=== PATIENT | female | born 1935 | race Hispanic/Latino ===

== ENCOUNTER 2019-12-07 12:00 | Inpatient (IN) | payer MEDICARE ==
[~2019-12-07] VITALS: Ht 147.3 cm; Wt 40.4 kg
[~2019-12-07 12:00] MED LIST: ACET-2743 PO; ALEN70TA10 PO; AMLO2.5T4 PO; BENZ200C53 PO; CALC1TAB2 PO; DIPH25 PO; LEVO5TAB13 PO; PANT40TA54 PO; [UNRECOGNIZED DRUG - CODE] PO
[2019-12-07 12:52] LABS: BASOPHILS % (AUTO) 0.1 % (0.0-5.0); HEMATOCRIT 39.3 % (36-48); LYMPHOCYTES % (AUTO) 9.6 % (21.0-51.0); MEAN CORPUSCULAR HGB CONC 35.1 g/dL (32.0-36.0); MEAN CORPUSCULAR VOLUME 76.9 fL (79-99); MONOCYTES % (AUTO) 8.4 % (3.0-13.0); NEUTROPHILS % (AUTO) 81.7 % (40.0-77.0); PLATELET COUNT (AUTO) 382 K/uL (130-400); RED BLOOD CELL COUNT(AUTO) 5.11 MIL/uL (4.00-5.50); RED CELL DISTRIBUTION WIDTH 11.2 % (11.0-15.5); WHITE BLOOD COUNT (AUTO) 8.3 K/uL (4.8-10.8)
[2019-12-07 12:56] LABS: APPEARANCE,URINE Turbid (CLEAR); BILIRUBIN,URINE Negative (NEGATIVE); COLOR,URINE Dark Yellow (YELLOW); GLUCOSE, URINE (UA) Negative (NEGATIVE); KETONES,URINE Trace mg/dL (NEGATIVE); LEUKOCYTE ESTERASE ,URINE Trace (NEGATIVE); NITRATE,URINE Negative (NEGATIVE); OCCULT BLOOD,URINE Negative (NEGATIVE); PROTEIN,URINE 300 mg/dL (NEGATIVE)
[2019-12-07] MEDS ORDERED: ZOSYN 3.375GM+NS 50ML 50 ML IV ONE (12:58)
[2019-12-07] MEDS ORDERED: METHYLPREDNISOLONE SOD SUCC 40MG/ML 1ML ONE (12:58)
[2019-12-07 13:06] LABS: AMORPHOUS SEDIMENT,UR Many /LPF (None Seen); BACTERIA,URINE Few /HPF (None Seen); RBC,URINE None Seen /HPF (0-1); SQUAMOUS EPITHELIAL CELL,UR 0-2 /HPF (0-2); WBC,URINE 0-1 /HPF (0-1)
[2019-12-07 13:07] LABS: ALBUMIN 3.2 g/dL (3.5-5.0); BILIRUBIN,DIRECT 0.2 mg/dL (0.0-0.3); BILIRUBIN,TOTAL 0.6 mg/dL (0.2-1.0); CREATININE 0.6 mg/dL (0.5-1.5); POTASSIUM 3.3 mmol/L (3.5-5.1)
[2019-12-07 13:43] LABS: CREATINE KINASE, TOTAL 90 U/L (21-232); MYOGLOBIN 74 ng/mL (10-92); TROPONIN I < 0.04 ng/mL (0.00-0.06)
[2019-12-07 13:46] LABS: INR 1.03 (0.85-1.15); PROTHROMBIN TIME 11.1 SEC (9.6-11.6)
[2019-12-07 13:55] LABS: ABG BASE EXCESS 5.7 mmol/L (-2.0-3.0); ABG OXYGEN SATURATION 99.3 % (95.0-99.0); ABG PCO2 59 mmHg (32-45)
[2019-12-07] MEDS ORDERED: SODIUM CHLORIDE 0.9% 1000ML 1,000 ML IV ONE (15:08)
[2019-12-07] MEDS ORDERED: LEVOFLOXACIN 500 MG/D5W 100 ML 100 ML ONE (15:39)
[2019-12-07] MEDS ORDERED: FAMOTIDINE/PF 20 MG/2 ML VIAL IV ONE (21:02)
[2019-12-07 21:14] LABS: CREATININE 0.4 mg/dL (0.5-1.5); POTASSIUM 3.4 mmol/L (3.5-5.1)
[2019-12-07] MEDS ORDERED: POTASSIUM BICARB/CIT AC 25 MEQ TABLET.EFF ONE (23:31)
[2019-12-08] MEDS ORDERED: ACETAMINOPHEN ELIXIR 650 MG/20.3 ML UDCUP ONE (06:04)
[2019-12-08 06:26] LABS: HEMATOCRIT 37.2 % (36-48); LYMPHOCYTES % (AUTO) 13.6 % (21.0-51.0); MEAN CORPUSCULAR HEMOGLOBIN 26.7 pg (27.0-33.0); MEAN CORPUSCULAR HGB CONC 33.9 g/dL (32.0-36.0); MEAN CORPUSCULAR VOLUME 78.8 fL (79-99); MONOCYTES % (AUTO) 6.4 % (3.0-13.0); NEUTROPHILS % (AUTO) 79.7 % (40.0-77.0); PLATELET COUNT (AUTO) 357 K/uL (130-400); RED BLOOD CELL COUNT(AUTO) 4.72 MIL/uL (4.00-5.50); RED CELL DISTRIBUTION WIDTH 11.3 % (11.0-15.5)
[2019-12-08 06:40] LABS: ALBUMIN 2.8 g/dL (3.5-5.0); BILIRUBIN,TOTAL 0.5 mg/dL (0.2-1.0); CREATININE 0.6 mg/dL (0.5-1.5); POTASSIUM 3.8 mmol/L (3.5-5.1)
[2019-12-08] MEDS ORDERED: METOPROLOL TARTRATE 25 MG TAB ONE (08:31)
[2019-12-08] MEDS ORDERED: FAMOTIDINE/PF 20 MG/2 ML VIAL IV ONE (08:32)
[2019-12-08 13:28] LABS: CREATININE 0.3 mg/dL (0.5-1.5); POTASSIUM 3.2 mmol/L (3.5-5.1)
[2019-12-08] MEDS ORDERED: LEVOFLOXACIN 500 MG/D5W 100 ML 100 ML ONE (16:58)
[2019-12-08] MEDS ORDERED: POTASSIUM CHLORIDE 10% ELIXIR 20 MEQ/15 ML UDCUP ONE ×2 (16:58→22:36)
[2019-12-08] MEDS ORDERED: AMLODIPINE BESYLATE 5 MG TAB ONE (17:24)
--- NOTE | 2019-12-08 20:10 | NUR ---
Pt ARRIVED TO ROOM 410 VIA STRETCHER. AWAKE AND ALERT. DAUGHTER AT HER SIDE. 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 STACY WAS INSERTED IN ER ON 12/08/2019. IV ON RFA 20G, NS AT 100ML/HR. RAMON STATES AT HOME HER MOM IS INDEPENDENT BUT LATELY BEING ILL SHE NEEDS HELP. CALL LIGHT WITHIN REACH. BED TO LOWEST LEVEL, LOCKED, SIDE RAILS UP x2. PENDING PCR RESULTS.
[2019-12-08 20:36] VITALS: BP 140/58
[2019-12-08] MEDS ORDERED: DIPH25 PO (21:33)
[2019-12-08] MEDS ORDERED: LEVO5TAB29 PO (21:37)
[2019-12-08] MEDS ORDERED: DORZ10DR10 OP (21:38)
[2019-12-08] MEDS: POTASSIUM CHLORIDE 10% ELIXIR 20 MEQ/15 ML UDCUP PO SCH (22:15)
[2019-12-08] MEDS: SODIUM CHLORIDE 0.9% 1000ML 1,000 ML IV SCH (22:45)
[2019-12-08 23:45] VITALS: BP 138/66
[2019-12-09] MEDS: POTASSIUM CHLORIDE 10% ELIXIR 20 MEQ/15 ML UDCUP PO SCH (02:28)
[2019-12-09 04:10] VITALS: BP 132/62
[2019-12-09] MEDS: SODIUM CHLORIDE 0.9% 1000ML 1,000 ML IV SCH (06:18)
[2019-12-09 08:25] VITALS: BP 169/72
[2019-12-09 12:25] VITALS: BP 119/58
[2019-12-09] MEDS ORDERED: AMLODIPINE BESYLATE 5 MG TAB ONE (15:34)
[2019-12-09 15:39] VITALS: BP 149/69
[2019-12-09] MEDS: LEVOFLOXACIN 500 MG/D5W 100 ML 100 ML IV SCH (15:48)
[2019-12-09 16:07] LABS: CREATININE 0.4 mg/dL (0.5-1.5); POTASSIUM 3.9 mmol/L (3.5-5.1)
--- NOTE | 2019-12-09 18:54 | NUR ---
#22 guage peripheral placed at left forearm. Iv antibiotics running.
[2019-12-09 19:26] VITALS: BP 142/58
[2019-12-09] MEDS: METOPROLOL TARTRATE 25 MG TAB PO SCH (21:00)
[2019-12-09 23:35] VITALS: BP 135/55
--- NOTE | 2019-12-10 00:13 | NUR ---
Pt's daughter requests metoprolol be held. Pt's daughter states she previously spoke w/Dr. Voss regarding holding metoprolol for concern for lightheadedness and falls. Current HR is 80.
[2019-12-10 03:45] VITALS: BP 160/71
[2019-12-10 08:37] VITALS: BP 155/61
[2019-12-10] MEDS ORDERED: AMLODIPINE BESYLATE 2.5 MG TAB PO SCH (09:00)
[2019-12-10] MEDS: METOPROLOL TARTRATE 25 MG TAB PO SCH (09:00)
[2019-12-10 12:10] VITALS: BP 134/58
[2019-12-10] MEDS: LEVOFLOXACIN 500 MG/D5W 100 ML 100 ML IV SCH (13:31)
[2019-12-10 14:54] LABS: CREATININE 0.5 mg/dL (0.5-1.5); POTASSIUM 4.1 mmol/L (3.5-5.1)
[2019-12-10 16:41] VITALS: BP 134/60
[2019-12-10] MEDS ORDERED: AMLO2.5T2 PO (17:10)
--- NOTE | 2019-12-10 19:02 | NUR ---
SPOKE WITH DAUGHTER PETRONA FOR [place] PLANNING STATES LIVES W/ SPOUSE, HOME SAFE AND ACCESSIBLE, NO PROBLEMS WITH MOBILITY INDP WITH ALL ADLS, DOES NOT DRIVE,HAS NEBULIZER, FOLLOWS REGULARLY WITH HER PCP,FLP HOME, DAUGHTER TO TRANSPORT. AWARE OF COVID NEG STATUS, NO SICK CONTACTS IN THE HOME Addendum: 12/10/19 at 1907 by ELLE PENA RN CM Amended: Links added.
== END 2019-12-10 18:00 | disposition home or self-care (01) | DRG 193 ==
LOC: EDH 12:00 → EDHIP 15:15 → 4BH 12-08 20:15
PROVIDERS: ADMIT Internal Medicine; ATTEND Internal Medicine
DX: J18.9 Pneumonia, unspecified organism (principal); Q33.6 Congenital hypoplasia and dysplasia of lung; Z68.1 Body mass index [BMI] 19.9 or less, adult; E87.1 Hypo-osmolality and hyponatremia; E46 Unspecified protein-calorie malnutrition; G93.40 Encephalopathy, unspecified; F05 Delirium due to known physiological condition; I10 Essential (primary) hypertension; E86.0 Dehydration; R62.7 Adult failure to thrive; K59.00 Constipation, unspecified; E88.89 Other specified metabolic disorders; M81.0 Age-related osteoporosis without current pathological fracture; Z20.828 Contact with and (suspected) exposure to other viral communicable diseases; Z90.49 Acquired absence of other specified parts of digestive tract; Z88.0 Allergy status to penicillin; Z82.49 Family history of ischemic heart disease and other diseases of the circulatory system
CPT/HCPCS: 36415; 36600; 70450; 71045; 80048; 80053; 80076; 81001; 82140; 82550; 82803; 83605; 83874; 84132; 84145; 84484; 85025; 85378; 85610; 85730; 86900; 86901; 87040; 87088; 87426; 87804; 93005; A4344; G0378; J1956; J2543; J2920; J3490; J7030; U0003

== ENCOUNTER 2020-02-26 14:49 | Inpatient (IN) | payer MEDICARE ==
[~2020-02-26] VITALS: Ht 147.3 cm; Wt 72.1 kg
[~2020-02-26 14:49] MED LIST changes: -ACET-2743 PO; -ALEN70TA10 PO; +AMLO2.5T2 PO; -BENZ200C53 PO; -CALC1TAB2 PO; +DORZ10DR10 OP; -LEVO5TAB13 PO; +LEVO5TAB29 PO; -[UNRECOGNIZED DRUG - CODE] PO
[2020-02-26 16:15] LABS: BASOPHILS % (AUTO) 0.1 % (0.0-5.0); HEMATOCRIT 38.6 % (36-48); LYMPHOCYTES % (AUTO) 4.4 % (21.0-51.0); MEAN CORPUSCULAR HEMOGLOBIN 27.1 pg (27.0-33.0); MEAN CORPUSCULAR HGB CONC 30.3 g/dL (32.0-36.0); MEAN CORPUSCULAR VOLUME 89.6 fL (79-99); MONOCYTES % (AUTO) 8.3 % (3.0-13.0); NUCLEATED RED BLOOD CELLS 0.7 % (0.0-0.19); PLATELET COUNT (AUTO) 272 K/uL (130-400); RED BLOOD CELL COUNT(AUTO) 4.31 MIL/uL (4.00-5.50); RED CELL DISTRIBUTION WIDTH 15.1 % (11.0-15.5); WHITE BLOOD COUNT (AUTO) 14.6 K/uL (4.8-10.8)
[2020-02-26] MEDS ORDERED: SODIUM CHLORIDE 0.9% 1000ML 1,000 ML IV ONE (17:02)
[2020-02-26] MEDS ORDERED: ZOSYN 3.375GM+NS 50ML 50 ML IV ONE (17:02)
[2020-02-26 17:06] LABS: ALBUMIN 2.6 g/dL (3.5-5.0); BILIRUBIN,TOTAL 1.1 mg/dL (0.2-1.0); CREATININE 1.2 mg/dL (0.5-1.5); TOTAL PROTEIN, SERUM 7.2 g/dL (6.0-8.3)
[2020-02-26] MEDS ORDERED: CALCIUM GLUCONATE 1 GM/10 ML VIAL IV ONE (17:13)
[2020-02-26] MEDS ORDERED: DEXTROSE 50%-WATER 50 ML DISP.SYRIN IV ONE (17:13)
[2020-02-26] MEDS ORDERED: INSULIN HUMULIN R 100 UNIT/ML 3ML ONE (17:14)
[2020-02-26] MEDS ORDERED: SODIUM CHLORIDE 0.9% 100 ML IV ONE (17:16)
[2020-02-26 17:41] LABS: APPEARANCE,URINE CLEAR (CLEAR); BILIRUBIN,URINE SMALL (NEGATIVE); COLOR,URINE YELLOW (YELLOW); GLUCOSE, URINE (UA) NEGATIVE (NEGATIVE); KETONES,URINE NEGATIVE (NEGATIVE); LEUKOCYTE ESTERASE ,URINE NEGATIVE (NEGATIVE); NITRATE,URINE NEGATIVE (NEGATIVE); OCCULT BLOOD,URINE NEGATIVE (NEGATIVE); PH,URINE 5.5 (5.0-8.0); PROTEIN,URINE 100 mg/dL (NEGATIVE); UROBILINOGEN,URINE 0.2 mg/dL (0.2-1.0)
[2020-02-26] MEDS ORDERED: FUROSEMIDE 10 MG/ML 2ML VIAL ONE (18:11)
[2020-02-26 18:19] LABS: ABG BASE EXCESS -5.9 mmol/L (-2.0-3.0); ABG HCO3 30.7 mmol/L (21.0-28.0); ABG OXYGEN SATURATION 98.1 % (95.0-99.0); ABG PCO2 146 mmHg (32-45)
[2020-02-26 18:29] LABS: RBC,URINE 0-1 /HPF (0-1); WBC,URINE 0-1 /HPF (0-1)
[2020-02-26 18:30] LABS: BACTERIA,URINE Few /HPF (None Seen); SQUAMOUS EPITHELIAL CELL,UR Rare /HPF (0-2); TRANSITIONAL EPI CELLS,URINE Rare /HPF (None Seen)
[2020-02-26] MEDS ORDERED: LEVOFLOXACIN 500 MG/D5W 100 ML 100 ML IV ONE (18:30)
[2020-02-26 20:07] LABS: ABG BASE EXCESS 2.1 mmol/L (-2.0-3.0); ABG HCO3 29.3 mmol/L (21.0-28.0); ABG PCO2 57 mmHg (32-45)
[2020-02-26] MEDS ORDERED: PROPOFOL 1000 MG/100 ML 100 ML IV ONE (20:39)
[2020-02-27] MEDS ORDERED: PROPOFOL 1000 MG/100 ML 100 ML IV ONE ×3 (05:15→23:22)
[2020-02-27 07:18] LABS: ALBUMIN 2.4 g/dL (3.5-5.0); BILIRUBIN,TOTAL 1.1 mg/dL (0.2-1.0); POTASSIUM 3.9 mmol/L (3.5-5.1); TOTAL PROTEIN, SERUM 6.2 g/dL (6.0-8.3)
[2020-02-27 07:24] LABS: BASOPHILS % (AUTO) 0.1 % (0.0-5.0); LYMPHOCYTES % (AUTO) 4.7 % (21.0-51.0); MEAN CORPUSCULAR HEMOGLOBIN 27.1 pg (27.0-33.0); MEAN CORPUSCULAR HGB CONC 31.6 g/dL (32.0-36.0); MEAN CORPUSCULAR VOLUME 85.8 fL (79-99); MONOCYTES % (AUTO) 7.6 % (3.0-13.0); NEUTROPHILS % (AUTO) 87.1 % (40.0-77.0); NUCLEATED RED BLOOD CELLS 1.6 % (0.0-0.19); PLATELET COUNT (AUTO) 236 K/uL (130-400); RED BLOOD CELL COUNT(AUTO) 4.31 MIL/uL (4.00-5.50); RED CELL DISTRIBUTION WIDTH 15.3 % (11.0-15.5); WHITE BLOOD COUNT (AUTO) 15.2 K/uL (4.8-10.8)
[2020-02-27 10:57] LABS: ABG BASE EXCESS 6.2 mmol/L (-2.0-3.0); ABG HCO3 32.2 mmol/L (21.0-28.0); ABG OXYGEN SATURATION 94.1 % (95.0-99.0); ABG PCO2 51 mmHg (32-45)
[2020-02-27] MEDS ORDERED: ZOSYN 3.375GM+NS 50ML 50 ML IV SCH (13:00)
[2020-02-27] MEDS: VANCOMYCIN 1GM+NS 250ML 250 ML IV SCH (13:45)
[2020-02-27] MEDS: SODIUM CHLORIDE 0.9% 1000ML 1,000 ML IV SCH (13:45)
[2020-02-27] MEDS ORDERED: IOHEXOL 350 MG/ML 100ML INFUS..BTL IV ONE (14:00)
[2020-02-27] MEDS ORDERED: VANCOMYCIN PROTOCOL PER PHARMACY IV SCH (14:00)
[2020-02-27] MEDS: ZOSYN 3.375GM+NS 50ML 50 ML IV SCH ×2 (15:00→23:00)
[2020-02-27] MEDS ORDERED: VANCOMYCIN 1GM+NS 250ML 250 ML IV ONE (16:08)
--- NOTE | 2020-02-27 16:35 | NUR ---
INITIAL: Unable to meet w pt, remains in ED. Call placed to pt's dtr (Candace) listed on facesheet. Per Candace, prior to admission pt was living w her and pt's spouse. Pt was independent w ambulation and requires assistance w ADLs. PT has at home a sh chair, BSC, wc, rollator and ramp to enter the home. Candace mentions that she provides transportation where needed. She mentions that at this time dcp is for pt to return home at tx. CM to continue to follow and wait for Md recommendations. Addendum: 02/27/20 at 1637 by NICHOLAS ALARCON Amended: Links added.
[2020-02-27] MEDS: VANCOMYCIN 500MG+NS 100ML 100 ML IV SCH (18:00)
[2020-02-27] MEDS: LEVOFLOXACIN 250 MG/D5W 50ML 50 ML IVPB SCH (18:00)
[2020-02-27] MEDS ORDERED: ZOSYN 3.375GM+NS 50ML 50 ML IV ONE (20:27)
[2020-02-27] MEDS ORDERED: FAMOTIDINE/PF 20 MG/2 ML VIAL IV ONE (20:28)
[2020-02-27 21:35] LABS: INR 1.35 (0.85-1.15); PROTHROMBIN TIME 14.4 SEC (9.6-11.6)
[2020-02-28] VITALS (14 sets, daily range): BP systolic 93–130; BP diastolic 40–67
--- NOTE | 2020-02-28 00:14 | NUR ---
UNSUCCESSFUL PICC LINE ATTEMTS X 3. RIGHT BRACHIAL VEIN ACCESSED, BUT PICC WOULD NOT ADVANCE PAST THE SUBCLAVIAN AREA. RIGHT BASILIC VEIN ATTEMPTED WELL WITH SAME OBSTRUCTION FINDINGS. STERILE DRESSING APPLIED. I ALSO ATTEMPTED ON THE LEFT BASILIC VEIN AND WAS ABLE TO ACCESS VEIN, BUT SAME OBSTRUCTION WAS NOTED ON LEFT SIDE WELL. UNABLE TO ADVANCE PICC PAST THE SUBCLAVIAN REGION. I WAS ABLE TO GET 2 PERIPHERAL IVS AT THE LEFT FOREARM AND LEFT ANTECUBITAL. BOTH WERE FLUSHED AND SALINE LOCKED. RN AWARE OF AND WILL ADVISE RADHAMES BENNETT OF UNSUCCESSFULL PICC ATTEMPTS AND WILL WAIT FOR FURTHER ORDERS.
[2020-02-28] MEDS: IPRATROPIUM/ALBUTEROL SULFATE 3 ML SOLUTION IH SCH ×4 (00:57→18:27)
[2020-02-28] MEDS: SODIUM CHLORIDE 0.9% 1000ML 1,000 ML IV SCH ×3 (03:05→23:18)
[2020-02-28 05:07] LABS: BASOPHILS % (AUTO) 0.1 % (0.0-5.0); HEMATOCRIT 32.3 % (36-48); LYMPHOCYTES % (AUTO) 5.4 % (21.0-51.0); MEAN CORPUSCULAR HEMOGLOBIN 26.9 pg (27.0-33.0); MEAN CORPUSCULAR HGB CONC 31.6 g/dL (32.0-36.0); MEAN CORPUSCULAR VOLUME 85.2 fL (79-99); MONOCYTES % (AUTO) 6.2 % (3.0-13.0); NUCLEATED RED BLOOD CELLS 0.4 % (0.0-0.19); PLATELET COUNT (AUTO) 233 K/uL (130-400); RED BLOOD CELL COUNT(AUTO) 3.79 MIL/uL (4.00-5.50); RED CELL DISTRIBUTION WIDTH 16.1 % (11.0-15.5); WHITE BLOOD COUNT (AUTO) 12.9 K/uL (4.8-10.8)
[2020-02-28 05:31] LABS: ALBUMIN 1.9 g/dL (3.5-5.0); BILIRUBIN,DIRECT 0.8 mg/dL (0.0-0.3); BILIRUBIN,TOTAL 1.1 mg/dL (0.2-1.0); TOTAL PROTEIN, SERUM 5.5 g/dL (6.0-8.3)
[2020-02-28] MEDS ORDERED: PROPOFOL 1000 MG/100 ML 100 ML IV ONE (05:39)
[2020-02-28] MEDS ORDERED: ZOSYN 3.375GM+NS 50ML 50 ML IV ONE (05:39)
[2020-02-28] MEDS: VANCOMYCIN 500MG+NS 100ML 100 ML IV SCH ×2 (06:00→17:22)
[2020-02-28] MEDS: ZOSYN 3.375GM+NS 50ML 50 ML IV SCH ×3 (07:00→22:09)
[2020-02-28 07:07] LABS: CREATININE 0.7 mg/dL (0.5-1.5); MAGNESIUM 1.6 mg/dL (1.80-2.40); PHOSPHORUS 2.6 mg/dL (2.5-4.9)
[2020-02-28 07:08] LABS: POTASSIUM 2.9 mmol/L (3.5-5.1)
[2020-02-28 07:53] LABS: ABG HCO3 29.6 mmol/L (21.0-28.0); ABG OXYGEN SATURATION 94.6 % (95.0-99.0); ABG PCO2 43 mmHg (32-45)
[2020-02-28] MEDS ORDERED: MAGNESIUM 2GM PREMIX 50ML 50 ML IV ONE (08:41)
[2020-02-28] MEDS ORDERED: POTASSIUM CHLORIDE 10MEQ/100ML 100 ML IV ONE ×2 (08:42→10:28)
[2020-02-28] MEDS: FAMOTIDINE/PF 20 MG/2 ML VIAL IV SCH (09:00)
[2020-02-28] MEDS: ENOXAPARIN SODIUM 40 MG/0.4 ML SYRINGE SQ SCH (09:00)
[2020-02-28] MEDS ORDERED: LIDOCAINE HCL-MPF 1% 2ML VIAL ONE ×2 (09:45→10:29)
[2020-02-28] MEDS ORDERED: FAMOTIDINE/PF 20 MG/2 ML VIAL IV ONE (09:45)
[2020-02-28] MEDS ORDERED: ENOXAPARIN SODIUM 40 MG/0.4 ML SYRINGE SQ ONE (09:58)
[2020-02-28] MEDS ORDERED: POTASSIUM CHLORIDE 20MEQ/100ML 100 ML IV ONE ×2 (10:29→17:19)
[2020-02-28] MEDS: PROPOFOL 1000 MG/100 ML 100 ML IV SCH ×2 (12:33→23:15)
[2020-02-28] MEDS: VANCOMYCIN 1GM+NS 250ML 250 ML IV SCH (14:53)
[2020-02-28] MEDS: LEVOFLOXACIN 250 MG/D5W 50ML 50 ML IVPB SCH (17:22)
[2020-02-28] MEDS: METHYLPREDNISOLONE SOD SUCC 40MG/ML 1ML IVP SCH (22:08)
[2020-02-29] VITALS (23 sets, daily range): BP systolic 112–156; BP diastolic 42–60
[2020-02-29] MEDS: IPRATROPIUM/ALBUTEROL SULFATE 3 ML SOLUTION IH SCH ×5 (00:42→23:20)
[2020-02-29 03:33] LABS: HEMATOCRIT 30.6 % (36-48); MEAN CORPUSCULAR HEMOGLOBIN 27.2 pg (27.0-33.0); MEAN CORPUSCULAR HGB CONC 31.7 g/dL (32.0-36.0); RED BLOOD CELL COUNT(AUTO) 3.56 MIL/uL (4.00-5.50); WHITE BLOOD COUNT (AUTO) 10.5 K/uL (4.8-10.8)
[2020-02-29 03:56] LABS: ALBUMIN 1.7 g/dL (3.5-5.0); BILIRUBIN,TOTAL 1.4 mg/dL (0.2-1.0); CREATININE 0.4 mg/dL (0.5-1.5); POTASSIUM 3.8 mmol/L (3.5-5.1); TOTAL PROTEIN, SERUM 5.4 g/dL (6.0-8.3)
[2020-02-29] MEDS: PROPOFOL 1000 MG/100 ML 100 ML IV SCH ×2 (05:56→21:00)
[2020-02-29] MEDS: VANCOMYCIN 500MG+NS 100ML 100 ML IV SCH (06:00)
[2020-02-29] MEDS: ZOSYN 3.375GM+NS 50ML 50 ML IV SCH ×3 (06:05→21:03)
[2020-02-29] MEDS: METHYLPREDNISOLONE SOD SUCC 40MG/ML 1ML IVP SCH ×2 (08:56→21:01)
[2020-02-29] MEDS: FAMOTIDINE/PF 20 MG/2 ML VIAL IV SCH (08:56)
[2020-02-29] MEDS: ENOXAPARIN SODIUM 40 MG/0.4 ML SYRINGE SQ SCH (08:58)
[2020-02-29] MEDS ORDERED: DIATR MEGLU/DIATRIZOATE SODIUM 30 ML BOTTLE ONE (14:08)
--- NOTE | 2020-02-29 15:36 | NUR ---
RD NOTIFICATION Pt admitted due to hyponatremia As per EMR pt has hx of chronic hyponatremia Pt was previously admitted to hospital on December 2019, in which wt was of 40 kg. Current wt is of 43 kg Low BMI for age. Pt is at mild-moderate nutritional risk. As per EMR, pt's daughter stated, pt has had poor appetite for 6 weeks. Due to poor PO intake prior to admission, pt is at risk for refeeding syndrome. Pt is currently NPO with a gastric volvulus. RD RECOMMENDATION: IF NPO >5 DAYS CONSIDER PPN. If pt mechanically ventilated with a functioning bowel and cleared by general surgery/GI consider NGT TF. TF recommendations faxed to [facility] as per general surgeon recommendations When medically feasible, consider Vitamin D labs to assess need for supplementation Pt may benefit from MVI RD will continue to follow Contact as nutritional concerns arise. LABS: NA 139, K 3.8, BUN 20, CREAT 0.4, GFR 162, BG 113, AST 338, ALT 936, TOT PRO 5.6, ALB 1.7 Addendum: 02/29/20 at [address] Amended: Links added.
[2020-02-29] MEDS: LEVOFLOXACIN 250 MG/D5W 50ML 50 ML IVPB SCH (17:49)
[2020-02-29] MEDS: SODIUM CHLORIDE 0.9% 1000ML 1,000 ML IV SCH (19:05)
[2020-03-01] VITALS (23 sets, daily range): BP systolic 112–166; BP diastolic 43–64
[2020-03-01 03:35] LABS: MEAN CORPUSCULAR HEMOGLOBIN 27.3 pg (27.0-33.0); MEAN CORPUSCULAR HGB CONC 31.3 g/dL (32.0-36.0); MEAN CORPUSCULAR VOLUME 87.2 fL (79-99); MONOCYTES % (AUTO) 3.5 % (3.0-13.0); NEUTROPHILS % (AUTO) 91.1 % (40.0-77.0); NUCLEATED RED BLOOD CELLS 0.3 % (0.0-0.19); PLATELET COUNT (AUTO) 185 K/uL (130-400); RED BLOOD CELL COUNT(AUTO) 3.44 MIL/uL (4.00-5.50); RED CELL DISTRIBUTION WIDTH 16.2 % (11.0-15.5); WHITE BLOOD COUNT (AUTO) 7.1 K/uL (4.8-10.8)
[2020-03-01 03:53] LABS: ALBUMIN 1.6 g/dL (3.5-5.0); BILIRUBIN,DIRECT 0.9 mg/dL (0.0-0.3); BILIRUBIN,TOTAL 1.3 mg/dL (0.2-1.0); CREATININE 0.5 mg/dL (0.5-1.5); MAGNESIUM 1.5 mg/dL (1.80-2.40); POTASSIUM 3.2 mmol/L (3.5-5.1); TOTAL PROTEIN, SERUM 5.6 g/dL (6.0-8.3)
[2020-03-01] MEDS: PROPOFOL 1000 MG/100 ML 100 ML IV SCH (04:08)
[2020-03-01] MEDS: ZOSYN 3.375GM+NS 50ML 50 ML IV SCH ×3 (06:32→23:34)
[2020-03-01] MEDS: IPRATROPIUM/ALBUTEROL SULFATE 3 ML SOLUTION IH SCH ×3 (06:35→18:24)
[2020-03-01] MEDS: FAMOTIDINE/PF 20 MG/2 ML VIAL IV SCH (08:32)
[2020-03-01] MEDS: METHYLPREDNISOLONE SOD SUCC 40MG/ML 1ML IVP SCH ×2 (08:32→23:34)
[2020-03-01] MEDS: ENOXAPARIN SODIUM 40 MG/0.4 ML SYRINGE SQ SCH (08:32)
[2020-03-01] MEDS: SODIUM CHLORIDE 0.9% 1000ML 1,000 ML IV SCH (08:58)
[2020-03-01] MEDS ORDERED: MAGNESIUM 2GM PREMIX 50ML 50 ML IV PRN (09:15)
--- NOTE | 2020-03-01 09:15 | NUR ---
LOIDA Arambula made aware about sedation off since 839 and plans for weaning trials and possible extubation today
[2020-03-01] MEDS: LIDOCAINE HCL-MPF 1% 2ML VIAL IV PRN ×2 (09:34→11:03)
[2020-03-01] MEDS: POTASSIUM CHLORIDE 20MEQ/100ML 100 ML IV PRN ×2 (09:34→11:03)
[2020-03-01 11:50] LABS: ABG BASE EXCESS -4.4 mmol/L (-2.0-3.0); ABG HCO3 19.8 mmol/L (21.0-28.0); ABG OXYGEN SATURATION 96.8 % (95.0-99.0); ABG PCO2 34 mmHg (32-45)
[2020-03-01 14:21] LABS: POTASSIUM 4.5 mmol/L (3.5-5.1)
--- NOTE | 2020-03-01 14:43 | NUR ---
Extubated at this time per RT Mario, placed on Aerosol Mask at 40 % FIO2, O2 sats noted at 97%
[2020-03-01] MEDS: LEVOFLOXACIN 250 MG/D5W 50ML 50 ML IVPB SCH (16:37)
[2020-03-01] MEDS: VANCOMYCIN 500MG+NS 100ML 100 ML IV SCH (18:06)
[2020-03-01] MEDS: DORZOLAMIDE HCL/TIMOLOL MALEAT DROPS 10 ML BOTTLE OP SCH (21:00)
[2020-03-02] VITALS (24 sets, daily range): BP systolic 112–156; BP diastolic 45–68
[2020-03-02] MEDS: IPRATROPIUM/ALBUTEROL SULFATE 3 ML SOLUTION IH SCH ×4 (00:37→18:43)
[2020-03-02] MEDS: SODIUM CHLORIDE 0.9% 1000ML 1,000 ML IV SCH ×2 (00:59→17:20)
[2020-03-02 06:30] LABS: CREATININE 0.5 mg/dL (0.5-1.5); MAGNESIUM 2.5 mg/dL (1.80-2.40); POTASSIUM 4.5 mmol/L (3.5-5.1)
[2020-03-02] MEDS: VANCOMYCIN 500MG+NS 100ML 100 ML IV SCH ×2 (07:22→17:20)
[2020-03-02] MEDS: ZOSYN 3.375GM+NS 50ML 50 ML IV SCH ×2 (07:23→14:13)
[2020-03-02] MEDS: FAMOTIDINE/PF 20 MG/2 ML VIAL IV SCH (09:00)
[2020-03-02] MEDS: DORZOLAMIDE HCL/TIMOLOL MALEAT DROPS 10 ML BOTTLE OP SCH ×2 (09:00→21:00)
[2020-03-02] MEDS: METHYLPREDNISOLONE SOD SUCC 40MG/ML 1ML IVP SCH ×2 (09:00→22:29)
[2020-03-02] MEDS: ENOXAPARIN SODIUM 40 MG/0.4 ML SYRINGE SQ SCH (09:01)
[2020-03-02] MEDS: COSOPT EYE OU SCH ×2 (09:45→22:29)
--- NOTE | 2020-03-02 11:00 | NUR ---
GARFIELD ESCALONA. SCHOOL NURSE COORDINATED WITH NURSE VICTOR. Walker CURRENTLY ON BIPAP. SCHOOL NURSE WILL CONTINUE TO FOLLOW PATIENT AND EVALUATE WHEN PATIENT TOLERATES AT LEAST ONE HOUR OFF OF BIPAP. Addendum: 03/02/[address] SAM LIRA Amended: Links added.
--- NOTE | 2020-03-02 16:40 | NUR ---
14 FR NGT INSERTED TO RT NARE PER REBECA PETERS, PLACEMENT CONFIRMED PER CHEST XRAY
[2020-03-02] MEDS: LEVOFLOXACIN 250 MG/D5W 50ML 50 ML IVPB SCH (17:05)
[2020-03-03] VITALS (24 sets, daily range): BP systolic 90–120; BP diastolic 21–48
[2020-03-03] MEDS: ZOSYN 3.375GM+NS 50ML 50 ML IV SCH ×4 (00:11→22:06)
[2020-03-03] MEDS: SODIUM CHLORIDE 0.9% 1000ML 1,000 ML IV SCH (00:25)
[2020-03-03] MEDS: IPRATROPIUM/ALBUTEROL SULFATE 3 ML SOLUTION IH SCH ×5 (00:27→23:36)
[2020-03-03] MEDS: VANCOMYCIN 500MG+NS 100ML 100 ML IV SCH ×2 (06:50→18:05)
[2020-03-03] MEDS: METHYLPREDNISOLONE SOD SUCC 40MG/ML 1ML IVP SCH ×2 (09:10→21:36)
[2020-03-03] MEDS: FAMOTIDINE/PF 20 MG/2 ML VIAL IV SCH (09:10)
[2020-03-03] MEDS: COSOPT EYE OU SCH ×2 (09:11→21:37)
[2020-03-03] MEDS: ENOXAPARIN SODIUM 40 MG/0.4 ML SYRINGE SQ SCH (09:11)
[2020-03-03] MEDS: DORZOLAMIDE HCL/TIMOLOL MALEAT DROPS 10 ML BOTTLE OP SCH ×2 (09:12→21:43)
--- NOTE | 2020-03-03 11:43 | NUR ---
HOLD EVAL. 2ND ATTEMPT. METALLURGICAL OR MATERIALS TECHNICIAN COORDINATED WITH NURSE. Pt CONTINUES ON BIPAP. METALLURGICAL OR MATERIALS TECHNICIAN WILL CONTINUE TO FOLLOW PATIENT AND EVALUATE WHEN PATIENT TOLERATES AT LEAST ONE HOUR OFF OF BIPAP. Addendum: 03/03/[address] SAM LIRA Amended: Links added.
[2020-03-03] MEDS ORDERED: ALBUMIN (HUMAN) 25% 100 ML IV ONE (14:00)
[2020-03-03] MEDS ORDERED: NOREPINEPHRINE 4MG/NS 250ML 250 ML IV SCH (14:15)
[2020-03-03] MEDS ORDERED: FENTANYL 2500MCG+NS 250ML 250 ML IV SCH (18:00)
[2020-03-03] MEDS ORDERED: PROPOFOL 1000 MG/100 ML 100 ML IV SCH (18:00)
[2020-03-03] MEDS: LEVOFLOXACIN 250 MG/D5W 50ML 50 ML IVPB SCH (18:05)
[2020-03-03] MEDS ORDERED: DEXTROSE 50%-WATER 50 ML DISP.SYRIN IV PRN (18:15)
[2020-03-03] MEDS ORDERED: GLUCAGON 1MG KIT 1 MG ML IM PRN (18:15)
[2020-03-03] MEDS: INSULIN HUMULIN R 100 UNIT/ML 3ML SQ SCH (18:17)
[2020-03-03] MEDS: NOREPINEPHRINE 4MG/NS 250ML 250 ML IV SCH (22:22)
--- NOTE | 2020-03-03 22:35 | NUR ---
CALLED PT DAUGHTER RAMON ([phone]) GAVE A QUICK UPDATE AND LET HER KNOW PT WAS HYPOTENSIVE AND PT STARTED ON MED TO HELP WITH HYPOTENSION. MEDICATION SIDE EFFECTS EXPLAINED DAUGHTER GIVEN OPPORTUNITY TO ASK QUESTIONS. STATES SHE UNDERSTOOD AND PLEASE GIVE HER A CALL BACK IF ANY OTHER CHANGES WITH PT.
[2020-03-04] VITALS (21 sets, daily range): BP systolic 72–160; BP diastolic 15–79
--- NOTE | 2020-03-04 02:30 | NUR ---
CALL PLACED TO CRITICAL CARE ON-CALL ([facility]) FOR UPDATE ON PT STATUS
--- NOTE | 2020-03-04 02:35 | NUR ---
CALLED PLACED TO PT DAUGHTER RAMON ([phone]) DAUGHTER GIVEN UPDATE ON PT CONDITION PER HOUSE SUP OK FOR FAMILY TO COME AND BE WITH PT
[2020-03-04 03:08] LABS: HEPATITIS A ANTIBODY IGM Negative (Negative); HEPATITIS B CORE IGM Negative (Negative); HEPATITIS Bs ANTIGEN SCREEN P Negative (Negative)
--- NOTE | 2020-03-04 03:14 | NUR ---
[facility] CONTACTED TO RETURN OUR CALL
--- NOTE | 2020-03-04 03:15 | NUR ---
SPOKE WITH SHENG FROM [facility] ORDERS RECEIVED AND PLACED INTO [facility]
--- NOTE | 2020-03-04 03:50 | NUR ---
PT FAMILY AT BEDSIDE TWO DAUGHTERS AND
[2020-03-04] MEDS: NOREPINEPHRINE 4MG/NS 250ML 250 ML IV SCH (03:54)
[2020-03-04 04:13] LABS: BASOPHILS % (AUTO) 0.1 % (0.0-5.0); EOSINOPHILS % (AUTO) 0.1 % (0.0-8.0); HEMATOCRIT 29.5 % (36-48); LYMPHOCYTES % (AUTO) 1.5 % (21.0-51.0); MEAN CORPUSCULAR HEMOGLOBIN 26.5 pg (27.0-33.0); MEAN CORPUSCULAR HGB CONC 27.1 g/dL (32.0-36.0); MEAN CORPUSCULAR VOLUME 97.7 fL (79-99); MONOCYTES % (AUTO) 8.3 % (3.0-13.0); NEUTROPHILS % (AUTO) 80.9 % (40.0-77.0); NUCLEATED RED BLOOD CELLS 0.2 % (0.0-0.19); PLATELET COUNT (AUTO) 122 K/uL (130-400); RED BLOOD CELL COUNT(AUTO) 3.02 MIL/uL (4.00-5.50); RED CELL DISTRIBUTION WIDTH 16.8 % (11.0-15.5)
[2020-03-04 04:17] LABS: ABG BASE EXCESS -15.5 mmol/L (-2.0-3.0); ABG HCO3 24.7 mmol/L (21.0-28.0); ABG OXYGEN SATURATION 95.8 % (95.0-99.0); ABG PCO2 > 155 mmHg (32-45)
[2020-03-04 04:17] LABS: WHITE BLOOD COUNT (AUTO) 37.6 K/uL (4.8-10.8)
[2020-03-04 04:30] LABS: ALBUMIN 2.4 g/dL (3.5-5.0); BILIRUBIN,TOTAL 0.6 mg/dL (0.2-1.0); CREATININE 1.3 mg/dL (0.5-1.5); MAGNESIUM 2.7 mg/dL (1.80-2.40); PHOSPHORUS 6.4 mg/dL (2.5-4.9); POTASSIUM 4.6 mmol/L (3.5-5.1); TOTAL PROTEIN, SERUM 5.9 g/dL (6.0-8.3)
--- NOTE | 2020-03-04 04:33 | NUR ---
[facility] PAGED
--- NOTE | 2020-03-04 04:35 | NUR ---
CALL RETURNED FROM [facility] REGARDING FAMILY WISHES WITH CONTINUED CARE
[2020-03-04 04:41] LABS: BAND NEUTROPHILS % (MANUAL) 12 % (0-2); LYMPHOCYTES % (MANUAL) 8 % (22-44); MAN.DIFF COMMENT-IMPRESSION MANUAL DIFFERENTIAL; METAMYELOCYTES % 3 % (0-0); MONOCYTES % (MANUAL) 1 % (2-9); MYELOCYTES % 2 % (0-0); PLATELET MORPHOLOGY COMMENT ADEQUATE; SEGMENTED NEUTROPHILS % 74 % (40-70)
[2020-03-04] MEDS: INSULIN HUMULIN R 100 UNIT/ML 3ML SQ SCH ×3 (06:00→12:00)
[2020-03-04] MEDS: VANCOMYCIN 500MG+NS 100ML 100 ML IV SCH (06:19)
[2020-03-04] MEDS: ZOSYN 3.375GM+NS 50ML 50 ML IV SCH ×2 (06:20→15:23)
[2020-03-04] MEDS: IPRATROPIUM/ALBUTEROL SULFATE 3 ML SOLUTION IH SCH ×3 (06:35→18:00)
[2020-03-04] MEDS: FAMOTIDINE/PF 20 MG/2 ML VIAL IV SCH (07:54)
[2020-03-04] MEDS: METHYLPREDNISOLONE SOD SUCC 40MG/ML 1ML IVP SCH (07:54)
[2020-03-04] MEDS: ENOXAPARIN SODIUM 40 MG/0.4 ML SYRINGE SQ SCH (07:55)
[2020-03-04] MEDS: DORZOLAMIDE HCL/TIMOLOL MALEAT DROPS 10 ML BOTTLE OP SCH (07:56)
[2020-03-04] MEDS: COSOPT EYE OU SCH (07:56)
[2020-03-04] MEDS ORDERED: DOPAMINE 800MG/D5 250ML 250 ML IV SCH (11:59)
--- NOTE | 2020-03-04 12:40 | NUR ---
HOLD EVAL. 3RD ATTEMPT. SOUND EFFECTS MANAGER COORDINATED WITH NURSE. Pt CONTINUES ON BIPAP. SOUND EFFECTS MANAGER WILL CONTINUE TO FOLLOW PATIENT AND EVALUATE WHEN PATIENT TOLERATES AT LEAST ONE HOUR OFF OF BIPAP. Addendum: 03/04/[address] SAM LIRA Amended: Links added.
--- NOTE | 2020-03-04 15:37 | NUR ---
RD FOLLOW UP Pt extubated 03/01/20 as per EMR As per EMR pt is on BIPAP. As per HEAD CUSTODIAN, pt needs to be 1 hr off BIPAP for speech evaluation. Pt's CDO: Intermittent bolus feedings of 1 can Jevity 1.5 with 250 ml Q6 as per RN RN stated pt tolerated feedings well As per EMR pt's status changed. Pt is now DNR. RD RECOMMENDATION; Continue intermittent bolus feedings. RD will continue to follow pt's status. Contact as nutritional concerns arise LABS: WBC 37.6, NA 148, CL 118, BUN 65, GFR 42, CREAT 1.3, BG 141, PHOS 6.4, TOT PRO 5.9, ALB 2.4 Addendum: 03/04/20 at [address] Amended: Links added.
--- NOTE | 2020-03-04 17:00 | NUR ---
Withdrawal of care Family decides to proceed with withdrawal of care. Taylor Don NP and Dr Voss notified. All previous orders to be discontinued and comfort care orders started.
[2020-03-04] MEDS ORDERED: MORPHINE SULFATE 2 MG/ML 1ML SYG IM PRN (19:30)
[2020-03-04] MEDS ORDERED: LORAZEPAM 2 MG/ML 1 ML VIAL IM PRN (19:30)
--- NOTE | 2020-03-04 20:18 | NUR ---
Pt. is unresponsive on BIPAP no sedation on Dopamine gtt. Family has decided withdrawl of care Bipap removed by RT and placed on NC 2l. All drips turned off. Family also requests removal of feeding tube. JASMIN reported of imminent demise Declination referral number # [id number].
[2020-03-05 07:00] VITALS: BP 65/12
[2020-03-05 08:00] VITALS: BP 58/10
--- NOTE | 2020-03-05 08:00 | NUR ---
Patient continues to be on comfort measures. Family at bedside.
[2020-03-05 09:00] VITALS: BP 42/12
--- NOTE | 2020-03-05 11:42 | NUR ---
Asystole robotics technologist called stating patient heart rythm was asystole. Checked on patient. Patient not responsive or breathing. Patient having idioventricular heart rythm as verified by second RN Edilson. Attempts made to call pump house technician to pronounce.
== END 2020-03-05 11:42 | disposition expired | DRG 208 ==
LOC: EDH 14:49 → UNDOADMIN 15:40 → INTOOBSV 15:40 → OBSVTOIN 15:40 → EDHIP 15:40 → 2DH 02-28 12:14
PROVIDERS: ADMIT Internal Medicine; ATTEND Internal Medicine
PROC: 5A1945Z Respiratory Ventilation, 24-96 Consecutive Hours (ICD-10-PCS; principal; 2020-02-26)
PROC: 0BH17EZ Insertion of Endotracheal Airway into Trachea, Via Natural or Artificial Opening (ICD-10-PCS; 2020-02-26)
PROC: 5A09357 Assistance with Respiratory Ventilation, Less than 24 Consecutive Hours, Continuous Positive Airway Pressure (ICD-10-PCS; 2020-03-01)
PROC: 5A09357 Assistance with Respiratory Ventilation, Less than 24 Consecutive Hours, Continuous Positive Airway Pressure (ICD-10-PCS; 2020-03-02)
PROC: 5A09357 Assistance with Respiratory Ventilation, Less than 24 Consecutive Hours, Continuous Positive Airway Pressure (ICD-10-PCS; 2020-03-03)
PROC: 5A09357 Assistance with Respiratory Ventilation, Less than 24 Consecutive Hours, Continuous Positive Airway Pressure (ICD-10-PCS; 2020-03-04)
DX: J96.21 Acute and chronic respiratory failure with hypoxia (principal); J18.9 Pneumonia, unspecified organism; E43 Unspecified severe protein-calorie malnutrition; Q33.6 Congenital hypoplasia and dysplasia of lung; Q33.3 Agenesis of lung; N17.9 Acute kidney failure, unspecified; J98.11 Atelectasis; E87.1 Hypo-osmolality and hyponatremia; E87.2 Acidosis; G93.40 Encephalopathy, unspecified; Q00-Q99 Congenital malformations, deformations and chromosomal abnormalities; J96.22 Acute and chronic respiratory failure with hypercapnia; Z66 Do not resuscitate; K31.89 Other diseases of stomach and duodenum; K74.60 Unspecified cirrhosis of liver; D63.8 Anemia in other chronic diseases classified elsewhere; I12.9 Hypertensive chronic kidney disease with stage 1 through stage 4 chronic kidney disease, or unspecified chronic kidney disease; K57.30 Diverticulosis of large intestine without perforation or abscess without bleeding; Z20.828 Contact with and (suspected) exposure to other viral communicable diseases; E87.5 Hyperkalemia; Z68.33 Body mass index [BMI] 33.0-33.9, adult; I46.9 Cardiac arrest, cause unspecified; K21.9 Gastro-esophageal reflux disease without esophagitis; N18.30 Chronic kidney disease, stage 3 unspecified; Y95 Nosocomial condition; R94.5 Abnormal results of liver function studies; J84.112 Idiopathic pulmonary fibrosis; Z82.49 Family history of ischemic heart disease and other diseases of the circulatory system; Z90.49 Acquired absence of other specified parts of digestive tract
CPT/HCPCS: 31500; 36415; 36600; 70450; 71045; 71270; 74176; 74178; 80048; 80053; 80074; 80076; 80202; 81001; 82140; 82150; 82435; 82550; 82803; 82947; 82948; 83605; 83690; 83735; 83880; 84100; 84132; 84145; 84295; 84484; 85018; 85025; 85027; 85378; 85610; 86038; 86215; 86235; 87071; 87077; 87186; 87205; 87426; 87804; 93005; 94002; 94003; 94640; 94660; 94664; 94667; 94668; 99291; C1751; C1894; G0378; J0610; J1265; J1650; J1815; J1940; J1956; J2543; J2704; J2920; J3370; J3475; J3480; J3490; J7030; J7070; P9046; Q9963; Q9967; U0003